=== PATIENT | female | born 1960 | race Caucasian/White ===

== ENCOUNTER 2022-03-13 17:43 | Emergency (ER) | payer MEDICARE, OTHER, MEDICAID, SELFPAY ==
[2022-03-13] VITALS (14 sets, daily range): BP systolic 111–147; BP diastolic 64–79; PULSE 57–69; RESP 11–22; TEMP 36.6; O2SAT 93–99; BMI 28.3
[2022-03-13 18:37] LABS: Add Manual Diff / Slide Review NO; Basophils Absolute Auto 0 /uL (0-100); Basophils Percent Auto 0.6 % (0-2); Eosinophils Absolute Auto 100 /uL (0-450); Eosinophils Percent Auto 1.2 % (2-4); Hematocrit 39.4 % (36-46); Hemoglobin 13.2 g/dL (12.0-16.0); Lymphocytes Absolute Auto 1500 /uL (1100-4500); Lymphocytes Percent Auto 28.1 % (25-40); Mean Corpuscular HGB Conc 33.5 % (30-36); Mean Corpuscular Hemoglobin 27.5 PG (26-34); Mean Corpuscular Volume 82.2 fL (80-100); Monocytes Absolute Auto 400 /uL (0-900); Neutrophils Absolute Auto 3200 /uL (1500-7000); Neutrophils Percent Auto 62.1 % (50-75); Platelet Count 236 X10^3/uL (150-400); Red Blood Cell Count 4.79 X10^6/uL (4.0-5.2); Red Cell Distribution Width 14.7 % (11.6-14.8); White Blood Cell Count 5.2 X10^3/uL (4.5-11.0)
[2022-03-13] MEDS: MECLIZINE HCL 12.5 MG TABLET 50 MG PO (18:51)
[2022-03-13] MEDS: SODIUM CHLORIDE 0.9% 1,000 ML 150 ML IV (18:51)
[2022-03-13] MEDS: ONDANSETRON 4 MG/2 ML INJ IV (18:52)
[2022-03-13 19:13] LABS: Alanine Aminotransferase 27 IU/L (<35); Albumin 4.5 g/dL (3.5-5.0); Albumin Globulin Ratio 1.2 (1.0-2.8); Alkaline Phosphatase 127 U/L (38-126); Aspartate Aminotransferase 32 IU/L (14-36); BUN Creatinine Ratio 9.6 (6-22); Bilirubin Total 0.4 mg/dL (0.2-1.3); Blood Urea Nitrogen 12 mg/dL (7-17); Calcium 9.9 mg/dL (8.4-10.2); Carbon Dioxide 25 mmol/L (22-32); Chloride 102 mmol/L (98-107); Creatine Kinase 45 U/L (30-135); Estimated Glomerular Filt Rate 49 mL/min (>60); Globulin 3.8 g/dL (1.7-4.1); Glucose 117 mg/dL (80-110); HEMOLYSIS < 15 (0-50); Potassium 4.3 mmol/L (3.4-5.1); Sodium 141 mmol/L (137-145); Total Protein 8.3 g/dL (6.3-8.2)
--- NOTE | 2022-03-13 19:16 | ED_ITS ---
HPI - Neuro Symptoms/Deficit <Kelsy Marivel, DO - Last Filed: 03/14/22 21:36> General Chief Complaint: Neuro Symptoms/Deficit Stated Complaint: DIZZY/NAUSEA/CAN'T HEAR OUT OF LT. EAR Time Seen by Provider: 03/13/22 18:12 Source: patient and family Mode of arrival: Wheelchair History of Present Illness HPI Narrative: Patient is a 61-year-old female with history of chronic kidney disease, schizoaffective disorder, panic disorder, GERD hyperlipidemia chronic vertigo presenting with 3 days of worsening vertigo. She says that all of her extremities feel heavy no rule localization of weakness numbness or tingling she feels extremely nauseous. Her vertigo has definitely gotten worse over the last 3 days it is worse with movement. She has no chest pain or palpitations. He has been having some visual changes more in her left side than her right side. She has some flashing lights. Started 3 days ago she had some loss of vision it seems to have returned. She saw bright red light. She denies a curtain falling down over her eyes or peripheral loss. She denies fever or chills. She generally does not feel well. Also having headache. She usually gets double vision whenever she sits up or moves. She is having obvious tremors in all extremities no On Anticoagulants: No Related Data Home Medications Medication Instructions Recorded Confirmed ASPIRIN/ACETAMINOPHEN/CAFFEINE 1 tab PO PRN ##0 03/21/11 (Excedrin Migraine Geltab) Zinc (#ZINC) 50 mg PO QDAY ##0 08/20/11 Fish Oil (#FISH OIL) 1,000 iu PO BID ##0 11/07/11 VITAMIN D (Vitamin D3) 1,000 unit PO QDAY ##0 11/07/11 ASPIRIN (#ASPIRIN) 325 mg PO PRN ##0 04/16/12 Previous Rx's Medication Instructions Recorded alprazolam 0.5 mg tablet (Xanax) 1 tab PO QDAYP #10 tabs 04/09/16 methylphenidate HCl 18 mg 18 mg PO QDAY #30 tabs 05/20/16 tablet,extended release 24 hr lamotrigine 100 mg tablet 250 mg PO HS #75 tabs 05/21/16 (Lamictal) methylphenidate HCl 54 mg 54 mg PO QDAY #30 tabs 05/21/16 tablet,extended release 24 hr zolpidem 10 mg tablet 10 mg PO HSP PRN #30 tabs 05/21/16 methylphenidate HCl 18 mg 18 mg PO QDAY #30 tabs 07/08/16 tablet,extended release 24 hr methylphenidate HCl 54 mg 54 mg PO QDAY #30 tabs 07/08/16 tablet,extended release 24 hr venlafaxine 75 mg capsule,extended 225 mg PO QDAY #270 caps 07/25/16 release 24 hr (Effexor XR) meclizine 25 mg tablet 25 mg PO QID #20 tabs 03/14/22 promethazine 25 mg rectal 25 mg WA Q6H PRN nausea and 03/14/22 suppository vomiting #12 ea Allergies Allergy/AdvReac Type Severity Reaction Status Date / Time No Known Drug Allergies Allergy Verified 03/13/22 18:08 Review of Systems <Kelsy Rowe DO - Last Filed: 03/14/22 21:36> Review of Systems Narrative: GENERAL: Denies chills, fatigue, malaise, fever, sweats, travel HEENT: Denies sinus pain, ear pain, sore throat, difficulty swallowing, neck pain RESPIRATORY: Denies dyspnea, cough, wheezing, hemoptysis, sputum. CARDIOVASCULAR: Denies chest pain, palpitations, orthopnea, edema GASTROINTESTINAL: Denies nausea, vomiting, abdominal pain, diarrhea, constipation, melena. : Denies dysuria, frequency, incontinence, hematuria, urinary retention, flank pain. MUSCULOSKELETAL: Denies weakness, joint pain, or bony pain SKIN: No rash, no erythema, no pruritus NEUROLOGIC: See HPI PSYCHIATRIC: No concerning psychosocial issues. 12 point review of systems is negative except for those stated above and HPI Hematologic/Lymphatic On Anticoagulants: No Patient History <Kelsy Rowe DO - Last Filed: 03/14/22 21:36> alcohol intake frequency: holidays/special occasions only Exam <DO Kelsy Luu Last Filed: 03/14/22 21:36> Initial Vital Signs Initial Vital Signs: Vital Signs Temperature 97.8 F 03/13/22 18:00 Pulse Rate 63 03/13/22 18:00 Respiratory Rate 18 03/13/22 18:00 Blood Pressure 135/79 03/13/22 18:00 Pulse Oximetry 98 03/13/22 18:00 Oxygen Delivery Method 03/13/22 18:00 GENERAL: Alert 61-year-old female generally appears to not feel well HEENT: Head atraumatic,EOMI, pupils reactive, face symmetric, moist mucous membranes EYES: Ultrasound at bedside does not show is any vitreous humor or retinal detachment in either eye. Red reflex present bilaterally CARDIOVASCULAR: Regular rate and rhythm without murmurs, rubs or gallops. RESPIRATORY: Breath sounds equal bilaterally, no wheezes rales or rhonchi. ABDOMEN: Soft, nontender. Normoactive bowel sounds all 4 quadrants. No guarding or rebound. EXTREMITIES: Normal range of motion, no clubbing or edema. Neurovascularly intact NEUROLOGICAL: Alert and oriented x4.Normal gait and speech. Cranial nerves II through XII grossly intact. Good [id number]-[id number], good [id number], strength equal bilaterally, no dysarthria or aphasia, sensation in tact to soft touch bilaterally, no visual changes, no facial droop. She had obvious diffuse weakness in all extremities shaking will trying to hold each extremity. SKIN: Warm, dry, no laceration, no petechiae, no rashes or lesions. <Herberth Alvraado MD - Last Filed: 03/14/22 17:30> Initial Vital Signs Initial Vital Signs: Vital Signs Temperature 97.8 F 03/13/22 18:00 Pulse Rate 63 03/13/22 18:00 Respiratory Rate 18 03/13/22 18:00 Blood Pressure 135/79 03/13/22 18:00 Pulse Oximetry 98 03/13/22 18:00 Oxygen Delivery Method 03/13/22 18:00 Scores <Kelsy Rowe DO - Last Filed: 03/14/22 21:36> NIH Stroke Scale Level of Conciousness: Alert, keenly responsive Ask month/age: Answers both questions correctly. Open/close eyes, close hand: Performs both tasks correctly Best gaze horizontal: Normal Visual gaffney: No visual loss Facial palsy: Normal symetrical movement Left arm drift: No drift for full 10 sec Right arm drift: No drift for full 10 sec Left leg drift: No drift for full 5 sec Right leg drift: No drift for full 5 sec Limb ataxia: Absent Sensory on face/arms/legs: Normal, no sensory loss Best language: No aphasia, normal Dysarthria: Normal Extinction or inattention: No abnormality Total NIH Stroke scale score: 0 <Herberth Alvarado MD - Last Filed: 03/14/22 17:30> NIH Stroke Scale Total NIH Stroke scale score: 0 Course <Kelsy Rowe DO - Last Filed: 03/14/22 21:36> Orders Ordered: Discontinued Medications Diazepam (Diazepam 10 Mg/2 Ml Syringe) 5 mg IV NOW ONE Stop: 03/14/22 07:35 Last Admin: 03/14/22 07:44 Dose: 5 mg Documented By: DUKE Diphenhydramine HCl (Diphenhydramine 50 Mg/Ml Vial) 25 mg IV NOW ONE Stop: 03/13/22 20:28 Last Admin: 03/13/22 20:36 Dose: 25 mg Documented By: MARTY Sodium Chloride (Normal Saline 0.9%) 1,000 mls @ 150 mls/hr IV CONT KAEL Last Infusion: 03/14/22 00:36 Dose: 0 mls/hr Documented By: Admin: 03/13/22 18:51 Dose: 150 mls/hr Documented By: TAY Ketorolac Tromethamine (Ketorolac 30 Mg/Ml Vial) 15 mg IV NOW ONE Stop: 03/13/22 20:28 Last Admin: 03/13/22 20:36 Dose: 15 mg Documented By: MARTY Lorazepam (Lorazepam 2 Mg/Ml Inj) 1 mg IV NOW ONE Stop: 03/13/22 22:32 Last Admin: 03/13/22 22:41 Dose: 1 mg Documented By: TAY Meclizine HCl (Meclizine Hcl 12.5 Mg Tablet) 50 mg PO NOW ONE Stop: 03/13/22 18:15 Last Admin: 03/13/22 18:51 Dose: 50 mg Documented By: NR Ondansetron HCl (Ondansetron 4 Mg/2 Ml Inj) 4 mg IV NOW ONE Stop: 03/13/22 18:15 Last Admin: 03/13/22 18:52 Dose: 4 mg Documented By: NR Vital Signs Vital signs: Vital Signs - 8 hr 03/14/22 09:30 03/14/22 10:00 03/14/22 10:00 Pulse Rate 59 L 66 Respiratory Rate 17 16 Blood Pressure 102/59 L Pulse Oximetry 93 96 03/14/22 10:30 03/14/22 11:17 Pulse Rate 54 L 55 L Respiratory Rate 18 Blood Pressure 103/60 Pulse Oximetry 93 98 <Herberth Alvarado MD - Last Filed: 03/14/22 17:30> Course Course Narrative: March 14, 2022 at 7:00 a.m. s/o dr rowe, CT angiogram reassuring. MRI is pending. Reassess for dizziness and weakness Orders Ordered: Discontinued Medications Diazepam (Diazepam 10 Mg/2 Ml Syringe) 5 mg IV NOW ONE Stop: 03/14/22 07:35 Last Admin: 03/14/22 07:44 Dose: 5 mg Documented By: DUKE Diphenhydramine HCl (Diphenhydramine 50 Mg/Ml Vial) 25 mg IV NOW ONE Stop: 03/13/22 20:28 Last Admin: 03/13/22 20:36 Dose: 25 mg Documented By: MARTY Sodium Chloride (Normal Saline 0.9%) 1,000 mls @ 150 mls/hr IV CONT KAEL Last Infusion: 03/14/22 00:36 Dose: 0 mls/hr Documented By: Admin: 03/13/22 18:51 Dose: 150 mls/hr Documented By: TAY Ketorolac Tromethamine (Ketorolac 30 Mg/Ml Vial) 15 mg IV NOW ONE Stop: 03/13/22 20:28 Last Admin: 03/13/22 20:36 Dose: 15 mg Documented By: MARTY Lorazepam (Lorazepam 2 Mg/Ml Inj) 1 mg IV NOW ONE Stop: 03/13/22 22:32 Last Admin: 03/13/22 22:41 Dose: 1 mg Documented By: TAY Meclizine HCl (Meclizine Hcl 12.5 Mg Tablet) 50 mg PO NOW ONE Stop: 03/13/22 18:15 Last Admin: 03/13/22 18:51 Dose: 50 mg Documented By: TAY Ondansetron HCl (Ondansetron 4 Mg/2 Ml Inj) 4 mg IV NOW ONE Stop: 03/13/22 18:15 Last Admin: 03/13/22 18:52 Dose: 4 mg Documented By: TAY Reevaluation(s) Reevaluation #1: March 14, 2022 at 10:11 a.m.. Spoke with patient results. She feels much better after resting overnight. Dizziness nearly resolved. She states for the past year she is had off and on dizziness and left postauricular discomfort and followed by her family doctor but nothing has been done regarding testing. MRI is suggestive may be mastoiditis. I informed her I will call otolaryngology for further instructions. Time: 10:12 Reevaluation #2: Patient denies any dizziness. Able to look at the wall without dizziness or nausea. Able to open her eyes and look around without any problems. Time: 10:23 Consultations Consultation #1: Spoke with Otolaryngology Dr. Clement Barry, at this time would not pursue mastoiditis. Patient can follow up in the office regarding her ear discomfort and dizziness ongoing for the past 1 year. Does agree with Antivert and nausea medication for home prescription Time: 10:21 Vital Signs Vital signs: Vital Signs - 8 hr 03/14/22 09:30 03/14/22 10:00 03/14/22 10:00 Pulse Rate 59 L 66 Respiratory Rate 17 16 Blood Pressure 102/59 L Pulse Oximetry 93 96 03/14/22 10:30 03/14/22 11:17 Pulse Rate 54 L 55 L Respiratory Rate 18 Blood Pressure 103/60 Pulse Oximetry 93 98 MDM - Neuro Symptoms/Deficit <Kelsy Rowe DO - Last Filed: 03/14/22 21:36> Lab Data Result diagrams: 03/13/22 18:21 03/13/22 18:21 Labs: Lab Results 03/13/22 03/13/22 03/13/22 Range/Units 18:04 18:04 18:21 WBC (4.5-11.0) X10^3/uL RBC (4.0-5.2) X10^6/uL Hgb (12.0-16.0) g/dL Hct (36-46) % MCV (80-100) fL MCH (26-34) PG MCHC (30-36) % RDW (11.6-14.8) % Plt Count (150-400) X10^3/uL Neut % (Auto) (50-75) % Lymph % (Auto) (25-40) % [place] % (Auto) (3-14) % Eos % (Auto) (2-4) % Baso % (Auto) (0-2) % Neut # (Auto) (1060-6159) /uL Lymph # (Auto) (1725-1283) /uL [place] # (Auto) (0-900) /uL Eos # (Auto) (0-450) /uL Baso # (Auto) (0-100) /uL Sodium 141 (137-145) mmol/L Potassium 4.3 (3.4-5.1) mmol/L Chloride 102 (98-107) mmol/L Carbon Dioxide 25 (22-32) mmol/L BUN 12 (7-17) mg/dL Creatinine 1.25 H (0.52-1.04) mg/dL Estimated GFR 49 L (>60) mL/min BUN/Creatinine Ratio 9.6 (6-22) Glucose 117 H (80-110) mg/dL Lactate 0.8 (0.7-2.1) mmol/L Calcium 9.9 (8.4-10.2) mg/dL Total Bilirubin 0.4 (0.2-1.3) mg/dL AST 32 (14-36) IU/L ALT 27 (<35) IU/L Alkaline Phosphatase 127 H (38-126) U/L Total Creatine Kinase 45 (30-135) U/L CK-MB (CK-2) TNP CK-MB (CK-2) Rel Index TNP Troponin I < 0.012 (0.01-0.034) ng/mL Total Protein 8.3 H (6.3-8.2) g/dL Albumin 4.5 (3.5-5.0) g/dL Globulin 3.8 (1.7-4.1) g/dL Albumin/Globulin Ratio 1.2 (1.0-2.8) Procalcitonin 0.04 (<0.5) ng/mL SARS-CoV-2 (PCR) (Negative) 03/13/22 03/13/22 Range/Units 18:21 19:43 WBC 5.2 (4.5-11.0) X10^3/uL RBC 4.79 (4.0-5.2) X10^6/uL Hgb 13.2 (12.0-16.0) g/dL Hct 39.4 (36-46) % MCV 82.2 (80-100) fL MCH 27.5 (26-34) PG MCHC 33.5 (30-36) % RDW 14.7 (11.6-14.8) % Plt Count 236 (150-400) X10^3/uL Neut % (Auto) 62.1 (50-75) % Lymph % (Auto) 28.1 (25-40) % Mcnairy % (Auto) 8.0 (3-14) % Eos % (Auto) 1.2 L (2-4) % Baso % (Auto) 0.6 (0-2) % Neut # (Auto) 3200 (7700-7396) /uL Lymph # (Auto) 1500 (9447-7049) /uL [place] # (Auto) 400 (0-900) /uL Eos # (Auto) 100 (0-450) /uL Baso # (Auto) 0 (0-100) /uL Sodium (137-145) mmol/L Potassium (3.4-5.1) mmol/L Chloride (98-107) mmol/L Carbon Dioxide (22-32) mmol/L BUN (7-17) mg/dL Creatinine (0.52-1.04) mg/dL Estimated GFR (>60) mL/min BUN/Creatinine Ratio (6-22) Glucose (80-110) mg/dL Lactate (0.7-2.1) mmol/L Calcium (8.4-10.2) mg/dL Total Bilirubin (0.2-1.3) mg/dL AST (14-36) IU/L ALT (<35) IU/L Alkaline Phosphatase (38-126) U/L Total Creatine Kinase (30-135) U/L CK-MB (CK-2) CK-MB (CK-2) Rel Index Troponin I (0.01-0.034) ng/mL Total Protein (6.3-8.2) g/dL Albumin (3.5-5.0) g/dL Globulin (1.7-4.1) g/dL Albumin/Globulin Ratio (1.0-2.8) Procalcitonin (<0.5) ng/mL SARS-CoV-2 (PCR) Negative (Negative) Point of Care Testing Test Results Positive Urine Dip Bedside Urine Glucose Negative Bedside Urine Bilirubin - Negative Bedside Urine Ketone - Negative Urine Specific [place] 1.005 Bedside Urine Occult Blood - Negative Bedside Urine pH 7.0 Bedside Urine Protein - Negative Bedside Urine Urobilinogen - Negative Bedside Urine Nitrite - Negative Bedside Urine Leukocytes - Negative Esterase Imaging Data CTA - brain/neck: Radiologist's Impression: ?Kellee Saunders MR#: [id number] : 1960 Acct:[id number] Age/Sex: 61 / F Date of Service: 03/13/22 Loc: ED Accession Number: [id number] ?? Procedure: CT angio head and neck Ordering Provider: Kelsy Rowe D.O. PROCEDURE:? CT ANGIO HEAD AND NECK ? INDICATIONS:? dizzy, falling, left eye pain ? TECHNIQUE:? Pre-contrast 4.5 mm thick sections acquired from the foramen magnum to the vertex.? After the administration of intravenous contrast, 1 mm thick sections acquired from the aortic arch through the [place].? Post-contrast 4.5 mm thick sections then re- acquired from the foramen magnum to the vertex.? 3-dimensional gsgdigl-hemlbctjg-htieoeoull (MIP) and/or volume rendering reformats were acquired of the central intracranial vasculature and neck separately. For radiation dose reduction, the following was used:? automated exposure control, adjustment of mA and/or kV according to patient size.? ? COMPARISON:? None. ? FINDINGS:? Image quality:? Excellent.? ? BRAIN:? CSF spaces:? Ventricles are normal in size and shape.? Basal cisterns are patent.? No extra-axial fluid collections.? ? Brain:? No midline shift.? No intracranial bleeds or masses.? Mix-white matter interface appears intact.? ? Skull and face:? Calvarium and facial bones appear intact, without suspicious lesions.? Orbits appear normal.? ? Sinuses:? Sinuses and mastoids are clear.? ? HEAD CT ANGIOGRAPHY:? Anterior circulation:? Intracranial internal carotid arteries are normal in size and flow.? The flow within the paired anterior cerebral arteries is normal and symmetric.? The flow within the middle cerebral arteries is normal and symmetric.? The anterior communicating artery is seen.? No aneurysms are seen.? ? Posterior circulation:? Visualized portions of the vertebral arteries demonstrate normal caliber, and join to form a normal appearing basilar artery.? Flow within the posterior cerebral arteries is normal and symmetric.? No aneurysms are seen.? ? NECK CT ANGIOGRAPHY:? Carotid system:? The great vessels demonstrate a conventional anatomy as they arise from the aortic arch.? The origins of the common carotid arteries appear patent.? The common carotid arteries demonstrate normal caliber and courses.? The bifurcation regions are both widely patent.? The internal carotid arteries demonstrate normal calibers and courses.? ? Posterior circulation:? The origins of the vertebral arteries both appear widely patent.? The more superior extracranial portions of both vertebral arteries also demonstrate normal courses and calibers.? They join to form a normal appearing basilar artery.? ? Soft tissues:? Visualized neck soft tissues demonstrate no suspicious abnormalities.? ? Bones:? No suspicious bony lesions.? Visualized cervical spine appears normally aligned.? IMPRESSION:? 1. No intracranial hemorrhage or other acute intracranial abnormality. 2. No large vessel occlusion or high-grade carotid stenosis. ? Any quantitative measurements of stenosis were performed using NASCET criteria.? ? ? Dictated by: Adonis Banks M.D. on 03/13/2022 at 19:54 ? ? Approved by: Adonis Banks M.D. on 03/13/2022 at 20:07 ? MDM Narrative Medical decision making narrative: 2229-patient re-evaluated still feeling dizzy when she turns her head. This seems to be an acute exacerbation of her ongoing vertigo. No relief with Benadryl or meclizine. CT is negative. She is given a dose of Ativan which let her sleep. She has has obvious bilateral weakness and visual changes all seems to be worse but chronic. MRI is ordered for the morning. Signed out to Dr. Alvarado <Herberth Alvarado MD - Last Filed: 03/14/22 17:30> Differential Diagnosis Differential diagnosis: Likely cerebrovascular accident, transient cerebral ischemia and other (Vertigo) Lab Data Labs: Lab Results 03/13/22 03/13/22 03/13/22 Range/Units 18:04 18:04 18:21 WBC (4.5-11.0) X10^3/uL RBC (4.0-5.2) X10^6/uL Hgb (12.0-16.0) g/dL Hct (36-46) % MCV (80-100) fL MCH (26-34) PG MCHC (30-36) % RDW (11.6-14.8) % Plt Count (150-400) X10^3/uL Neut % (Auto) (50-75) % Lymph % (Auto) (25-40) % [place]nairy % (Auto) (3-14) % Eos % (Auto) (2-4) % Baso % (Auto) (0-2) % Neut # (Auto) (6147-0125) /uL Lymph # (Auto) (1471-4852) /uL [place] # (Auto) (0-900) /uL Eos # (Auto) (0-450) /uL Baso # (Auto) (0-100) /uL Sodium 141 (137-145) mmol/L Potassium 4.3 (3.4-5.1) mmol/L Chloride 102 (98-107) mmol/L Carbon Dioxide 25 (22-32) mmol/L BUN 12 (7-17) mg/dL Creatinine 1.25 H (0.52-1.04) mg/dL Estimated GFR 49 L (>60) mL/min BUN/Creatinine Ratio 9.6 (6-22) Glucose 117 H (80-110) mg/dL Lactate 0.8 (0.7-2.1) mmol/L Calcium 9.9 (8.4-10.2) mg/dL Total Bilirubin 0.4 (0.2-1.3) mg/dL AST 32 (14-36) IU/L ALT 27 (<35) IU/L Alkaline Phosphatase 127 H (38-126) U/L Total Creatine Kinase 45 (30-135) U/L CK-MB (CK-2) TNP CK-MB (CK-2) Rel Index TNP Troponin I < 0.012 (0.01-0.034) ng/mL Total Protein 8.3 H (6.3-8.2) g/dL Albumin 4.5 (3.5-5.0) g/dL Globulin 3.8 (1.7-4.1) g/dL Albumin/Globulin Ratio 1.2 (1.0-2.8) Procalcitonin 0.04 (<0.5) ng/mL SARS-CoV-2 (PCR) (Negative) 03/13/22 03/13/22 Range/Units 18:21 19:43 WBC 5.2 (4.5-11.0) X10^3/uL RBC 4.79 (4.0-5.2) X10^6/uL Hgb 13.2 (12.0-16.0) g/dL Hct 39.4 (36-46) % MCV 82.2 (80-100) fL MCH 27.5 (26-34) PG MCHC 33.5 (30-36) % RDW 14.7 (11.6-14.8) % Plt Count 236 (150-400) X10^3/uL Neut % (Auto) 62.1 (50-75) % Lymph % (Auto) 28.1 (25-40) % [place] % (Auto) 8.0 (3-14) % Eos % (Auto) 1.2 L (2-4) % Baso % (Auto) 0.6 (0-2) % Neut # (Auto) 3200 (6032-7802) /uL Lymph # (Auto) 1500 (6538-5771) /uL [place] # (Auto) 400 (0-900) /uL Eos # (Auto) 100 (0-450) /uL Baso # (Auto) 0 (0-100) /uL Sodium (137-145) mmol/L Potassium (3.4-5.1) mmol/L Chloride (98-107) mmol/L Carbon Dioxide (22-32) mmol/L BUN (7-17) mg/dL Creatinine (0.52-1.04) mg/dL Estimated GFR (>60) mL/min BUN/Creatinine Ratio (6-22) Glucose (80-110) mg/dL Lactate (0.7-2.1) mmol/L Calcium (8.4-10.2) mg/dL Total Bilirubin (0.2-1.3) mg/dL AST (14-36) IU/L ALT (<35) IU/L Alkaline Phosphatase (38-126) U/L Total Creatine Kinase (30-135) U/L CK-MB (CK-2) CK-MB (CK-2) Rel Index Troponin I (0.01-0.034) ng/mL Total Protein (6.3-8.2) g/dL Albumin (3.5-5.0) g/dL Globulin (1.7-4.1) g/dL Albumin/Globulin Ratio (1.0-2.8) Procalcitonin (<0.5) ng/mL SARS-CoV-2 (PCR) Negative (Negative) Point of Care Testing Test Results Positive Urine Dip Bedside Urine Glucose Negative Bedside Urine Bilirubin - Negative Bedside Urine Ketone - Negative Urine Specific [place] 1.005 Bedside Urine Occult Blood - Negative Bedside Urine pH 7.0 Bedside Urine Protein - Negative Bedside Urine Urobilinogen - Negative Bedside Urine Nitrite - Negative Bedside Urine Leukocytes - Negative Esterase Imaging Data MRI brain: Radiologist's Impression: [address] [address] Magnetic Resonance Report Signed Patient: Kellee Saunders MR#: [id number] : 1960 Acct:[id number] Age/Sex: 61 / F Date of Service: 03/14/22 Loc: ED Accession Number: [id number] ?? Procedure: MR head/brain wo con Ordering Provider: Kelsy Rowe D.O. PROCEDURE:? MR HEAD/BRAIN WO CON ? INDICATIONS:? on going dizziness, visual changes ? TECHNIQUE:? Noncontrast axial T1 spin echo, axial T2 fast spin echo, sagittal and axial FLAIR, coronal T2 fast spin echo, axial gradient echo, axial diffusion and ADC through the brain.? ? COMPARISON:? [facility], CT, CT ANGIO HEAD AND NECK, 03/13/2022, 19:21. ? FINDINGS:? Image quality:? Excellent.? ? CSF Spaces:? Basal cisterns are patent.? No extra-axial fluid collections.? V entricles are normal in size and shape.? ? Brain:? No intracranial masses or hemorrhage.? Mix/white matter interface is normal.? Brainstem appears normal.? Diffusion-weighted images demonstrate no acute ischemic insult.? No chronic ischemic insults.? Normal intravascular flow voids are present.? There are minimal scattered areas increased T2/FLAIR signal intensity within the periventricular and subcortical white matter. ? Skull and face:? Calvarium has normal marrow signal.? Orbits appear normal.? ? Sinuses:? Sinuses are clear.? Fluid is present within the mastoid air cells bilaterally. ? IMPRESSION:? ? 1. No acute intracranial process. ? 2. Minimal scattered white matter hyperintensities as above most consistent with early changes of chronic microvascular ischemia. ? 3. Fluid is present within the mastoid air cells bilaterally.? Recommend correlation to potential mastoiditis.? ? ? Dictated by: Delilah Chester M.D. on 03/14/2022 at 8:22 ? ? Approved by: Delilah Chester M.D. on 03/14/2022 at 8:25 ? ECG Data Interpretation: Sinus bradycardia rate [address] elevation or depression. Incomplete right bundle-branch block MDM Narrative Medical decision making narrative: 2229-patient re-evaluated still feeling dizzy when she turns her head. This seems to be an acute exacerbation of her ongoing vertigo. No relief with Benadryl or meclizine. CT is negative. She is given a dose of Ativan which let her sleep. She has has obvious bilateral weakness and visual changes all seems to be worse but chronic. MRI is ordered for the morning. Signed out to Dr. Alvarado Appropriate for discharge home. Exam and laboratory studies and imaging are reassuring. At this time clinically likely vertigo. Medication required benzodiazepines to resolve. However not toxic at discharge. TIA/vertigo considered in diagnosis differential but not limited. Did review with Otolaryngology as well. No neuro consult indicated this time. Symptoms resol lucinda with benzodiazepines. Return precautions reviewed with patient. Not toxic at discharge. She desires discharge home. Discharge Plan Departure Patient Disposition: Home Clinical Impression: Dizziness Instructions: Vertigo Activity Restrictions/Additional Instructions: No driving or operating machinery today. Prescriptions have been provided for you tell for any recurrence of dizziness. The suppository will make you sleepy. No driving or operating machinery when taking this. This will also help for dizziness and nausea. Call provided otolaryngology/ENT office with Dr. Barry today for office appointment in a week. See family doctor in a week for recheck as well. Return if worse if any questions or concerns. Prescriptions: New meclizine 25 mg tablet 25 mg PO QID Qty: 20 0RF promethazine 25 mg suppository 25 mg WA Q6H PRN (Reason: nausea and vomiting) Qty: 12 0RF No Action ASPIRIN/ACETAMINOPHEN/CAFFEINE (Excedrin Migraine Geltab) 1 tab PO PRN Qty: 0 Zinc (#ZINC) 50 mg PO QDAY Qty: 0 Fish Oil (#FISH OIL) 1,000 iu PO BID Qty: 0 VITAMIN D (Vitamin D3) 1,000 unit PO QDAY Qty: 0 ASPIRIN (#ASPIRIN) 325 mg PO PRN Qty: 0 alprazolam [Xanax] 0.5 MG tablet 1 tab PO QDAYP Qty: 10 0RF methylphenidate HCl 18 MG tablet extended release 24hr 18 mg PO QDAY Qty: 30 0RF lamotrigine [Lamictal] 100 MG tablet 250 mg PO HS Qty: 75 1RF zolpidem 10 MG tablet 10 mg PO HSP PRNQty: 30 1RF methylphenidate HCl 54 MG tablet extended release 24hr 54 mg PO QDAY Qty: 30 0RF methylphenidate HCl 54 MG tablet extended release 24hr 54 mg PO QDAY Qty: 30 0RF methylphenidate HCl 18 MG tablet extended release 24hr 18 mg PO QDAY Qty: 30 0RF venlafaxine [Effexor XR] 75 MG capsule,extended release 24hr 225 mg PO QDAY Qty: 270 0RF Referrals: Soha Gary ARNP [Primary Care Provider] - Clement Barry MD [Physician] - Visit Report Forms: Patient Portal/API
[2022-03-13 19:24] LABS: Troponin I < 0.012 ng/mL (0.01-0.034)
--- NOTE | 2022-03-13 19:37 | DI.CT.S_ITS ---
PROCEDURE: CT ANGIO HEAD AND NECK INDICATIONS: dizzy, falling, left eye pain TECHNIQUE: Pre-contrast 4.5 mm thick sections acquired from the foramen magnum to the vertex. After the administration of intravenous contrast, 1 mm thick sections acquired from the aortic arch through the [place] of [place]. Post-contrast 4.5 mm thick sections then re-acquired from the foramen magnum to the vertex. 3-dimensional [id number]-tbjtcplqmm (MIP) and/or volume rendering reformats were acquired of the central intracranial vasculature and neck separately. For radiation dose reduction, the following was used: automated exposure control, adjustment of mA and/or kV according to patient size. COMPARISON: None. FINDINGS: Image quality: Excellent. BRAIN: CSF spaces: Ventricles are normal in size and shape. Basal cisterns are patent. No extra-axial fluid collections. Brain: No midline shift. No intracranial bleeds or masses. Mix-white matter interface appears intact. Skull and face: Calvarium and facial bones appear intact, without suspicious lesions. Orbits appear normal. Sinuses: Sinuses and mastoids are clear. HEAD CT ANGIOGRAPHY: Anterior circulation: Intracranial internal carotid arteries are normal in size and flow. The flow within the paired anterior cerebral arteries is normal and symmetric. The flow within the middle cerebral arteries is normal and symmetric. The anterior communicating artery is seen. No aneurysms are seen. Posterior circulation: Visualized portions of the vertebral arteries demonstrate normal caliber, and join to form a normal appearing basilar artery. Flow within the posterior cerebral arteries is normal and symmetric. No aneurysms are seen. NECK CT ANGIOGRAPHY: Carotid system: The great vessels demonstrate a conventional anatomy as they arise from the aortic arch. The origins of the common carotid arteries appear patent. The common carotid arteries demonstrate normal caliber and courses. The bifurcation regions are both widely patent. The internal carotid arteries demonstrate normal calibers and courses. Posterior circulation: The origins of the vertebral arteries both appear widely patent. The more superior extracranial portions of both vertebral arteries also demonstrate normal courses and calibers. They join to form a normal appearing basilar artery. Soft tissues: Visualized neck soft tissues demonstrate no suspicious abnormalities. Bones: No suspicious bony lesions. Visualized cervical spine appears normally aligned. IMPRESSION: 1. No intracranial hemorrhage or other acute intracranial abnormality. 2. No large vessel occlusion or high-grade carotid stenosis. Any quantitative measurements of stenosis were performed using NASCET criteria. Dictated by: Adonis Banks M.D. on 03/13/2022 at 19:54 Approved by: Adonis Banks M.D. on 03/13/2022 at 20:07
[2022-03-13 20:09] LABS: COVID19 -Nasal RAPID Negative (Negative)
[2022-03-13 20:27] LABS: Lactate (Lactic Acid) 0.8 mmol/L (0.7-2.1)
[2022-03-13] MEDS: KETOROLAC 30 MG/ML VIAL 15 MG IV (20:36)
[2022-03-13] MEDS: diphenhydrAMINE 50 MG/ML VIAL 25 MG IV (20:36)
[2022-03-13 20:45] LABS: Procalcitonin 0.04 ng/mL (<0.5)
[2022-03-13] MEDS: LORazepam 2 MG/ML INJ 1 MG IV (22:41)
[2022-03-14] VITALS (30 sets, daily range): BP systolic 88–110; BP diastolic 51–71; PULSE 48–74; RESP 7–42; O2SAT 90–98
--- NOTE | 2022-03-14 02:35 | DI.MRI.S_ITS ---
PROCEDURE: MR HEAD/BRAIN WO CON INDICATIONS: on going dizziness, visual changes TECHNIQUE: Noncontrast axial T1 spin echo, axial T2 fast spin echo, sagittal and axial FLAIR, coronal T2 fast spin echo, axial gradient echo, axial diffusion and ADC through the brain. COMPARISON: [facility], CT, CT ANGIO HEAD AND NECK, 03/13/2022, 19:21. FINDINGS: Image quality: Excellent. CSF Spaces: Basal cisterns are patent. No extra-axial fluid collections. Ventricles are normal in size and shape. Brain: No intracranial masses or hemorrhage. Mix/white matter interface is normal. Brainstem appears normal. Diffusion-weighted images demonstrate no acute ischemic insult. No chronic ischemic insults. Normal intravascular flow voids are present. There are minimal scattered areas increased T2/FLAIR signal intensity within the periventricular and subcortical white matter. Skull and face: Calvarium has normal marrow signal. Orbits appear normal. Sinuses: Sinuses are clear. Fluid is present within the mastoid air cells bilaterally. IMPRESSION: 1. No acute intracranial process. 2. Minimal scattered white matter hyperintensities as above most consistent with early changes of chronic microvascular ischemia. 3. Fluid is present within the mastoid air cells bilaterally. Recommend correlation to potential mastoiditis. Dictated by: Delilah Chester M.D. on 03/14/2022 at 8:22 Approved by: Delilah Chester M.D. on 03/14/2022 at 8:25
[2022-03-14] MEDS: diazePAM 10 MG/2 ML SYRINGE 5 MG IV (07:44)
--- NOTE | 2022-03-14 09:27 | PC.NURSE ---
pt reports felt some vertigo/dizziness when up to wheelchair for mri but less than last night.
--- NOTE | 2022-03-14 10:38 | PC.NURSE ---
message left with to come pick patient up [phone]
--- NOTE | 2022-03-14 14:06 | PC.NURSE ---
[facility] called requesting change in medication for patient from suppositories to pill, per Dr Alvarado was okay to change with same Q6H PRN.
== END 2022-03-14 11:20 | disposition home or self-care (01) ==
PROVIDERS: Emergency Medicine; Emergency Provider Emergency Medicine; PCP Nurse Practitioner
DX: R42 Dizziness and giddiness (principal); H53.9 Unspecified visual disturbance; R51.9 Headache, unspecified; Z20.822 Contact with and (suspected) exposure to COVID-19
CPT/HCPCS: 36415; 70496; 70498; 70551; 80053; 81003; 81025; 82550; 83605; 84145; 84484; 85025; 87635; 93005; 93010; 96361; 96374; 96375; 99284; C9803; J1200; J1885; J2060; J2405; J3360; Q9967

== ENCOUNTER 2023-06-30 19:54 | Emergency (ER) | payer MEDICARE, MEDICAID, SELFPAY ==
[2023-06-30 20:02] VITALS: BP 122/59; PULSE 85; RESP 18; TEMP 36.8; O2SAT 97; BMI 28.8
--- NOTE | 2023-06-30 20:09 | DI.RAD.S_ITS ---
PROCEDURE: XR RIBS RT MIN 3V W CXR 1V INDICATIONS: fall thursday/pain TECHNIQUE: 4 views of the ribs were acquired, along with a single view chest. COMPARISON: None. FINDINGS: Surgical changes and devices: None. Bones and chest wall: Motion degraded radiographs. No displaced fracture is seen. Degenerative changes. Lungs and pleura: Linear opacities in the right lung may represent atelectasis/scar. No dense consolidation or pleural effusion. Mediastinum: Normal heart size IMPRESSION: No acute radiographic abnormality. There is motion artifact. If there is high concern for occult injury, consider repeat radiography or cross-sectional imaging. Linear opacities in the right lung, possibly atelectasis or scar. Consider future imaging surveillance to assess for resolution. Dictated by: Chalino Ca M.D. on 06/30/2023 at 20:57 Approved by: Chalino Ca M.D. on 06/30/2023 at 20:59
--- NOTE | 2023-06-30 21:10 | ED.BACK ---
HPI - Back Pain/Injury General Chief Complaint: Back Pain/Injury Stated Complaint: rt sided rib pain s/p fall on thursday Time Seen by Provider: 06/30/23 20:46 Source: patient Mode of arrival: Ambulatory History of Present Illness HPI Narrative: 62-year-old female who stated that she fell approximately 4 days ago. Landed on her right side. Since that time she has had right-sided back lower rib and side lower rib discomfort. It hurts with palpation. Hurts with movement. Hurts with coughing and hurts with taking deep breaths. No fevers. No shortness of breath. No bruising. No other injuries from the event. Related Data Home Medications Medication Instructions Recorded Confirmed ASPIRIN/ACETAMINOPHEN/CAFFEINE 1 tab PO PRN ##0 03/21/11 (Excedrin Migraine Geltab) Zinc (#ZINC) 50 mg PO QDAY ##0 08/20/11 Fish Oil (#FISH OIL) 1,000 iu PO BID ##0 11/07/11 VITAMIN D (Vitamin D3) 1,000 unit PO QDAY ##0 11/07/11 ASPIRIN (#ASPIRIN) 325 mg PO PRN ##0 04/16/12 Previous Rx's Medication Instructions Recorded alprazolam 0.5 mg tablet (Xanax) 1 tab PO QDAYP #10 tabs 04/09/16 methylphenidate HCl 18 mg 18 mg PO QDAY #30 tabs 05/20/16 tablet,extended release 24 hr lamotrigine 100 mg tablet 250 mg (2.5 x 100 mg) PO HS #75 05/21/16 (Lamictal) tabs methylphenidate HCl 54 mg 54 mg PO QDAY #30 tabs 05/21/16 tablet,extended release 24 hr zolpidem 10 mg tablet 10 mg PO HSP PRN #30 tabs 05/21/16 methylphenidate HCl 18 mg 18 mg PO QDAY #30 tabs 07/08/16 tablet,extended release 24 hr methylphenidate HCl 54 mg 54 mg PO QDAY #30 tabs 07/08/16 tablet,extended release 24 hr venlafaxine 75 mg capsule,extended 225 mg (3 x 75 mg) PO QDAY #270 07/25/16 release 24 hr (Effexor XR) caps meclizine 25 mg tablet 25 mg PO QID #20 tabs 03/14/22 promethazine 25 mg rectal 25 mg MO Q6H PRN nausea and 03/14/22 suppository vomiting #12 ea Allergies Allergy/AdvReac Type Severity Reaction Status Date / Time No Known Drug Allergies Allergy Verified 03/13/22 18:08 Review of Systems Constitutional Constitutional: Reports system reviewed and no additional complaints, except as documented Cardiovascular Cardiovascular: Reports system reviewed and no additional complaints, except as documented Respiratory Respiratory: Reports system reviewed and no additional complaints, except as documented Gastrointestinal Gastrointestinal: Reports system reviewed and no additional complaints, except as documented Integumentary/Breasts Skin/Breast: Reports system reviewed and no additional complaints, except as documented Neurologic Neurologic: Reports system reviewed and no additional complaints, except as documented Hematologic/Lymphatic On Anticoagulants: No Patient History Social History Smoking Status: Never smoker Smoking Status: Never smoker alcohol intake frequency: holidays/special occasions only Substance Use Type: does not use Exam Initial Vital Signs Initial Vital Signs: Vital Signs Temperature 98.3 F 06/30/23 20:02 Pulse Rate 85 06/30/23 20:02 Respiratory Rate 18 06/30/23 20:02 Blood Pressure 122/59 L 06/30/23 20:02 Pulse Oximetry 97 06/30/23 20:02 Oxygen Delivery Method Room Air 06/30/23 20:02 Const General: cooperative and No ill appearing HENMT Head: normal to inspection Chest Chest: No crepitus and tenderness (Right-sided lower ribs lateral flank and posterior) Resp Effort & Inspection: normal respiratory effort Auscultation: clear to auscultation bilaterally Skin General: no rashes or lesions noted Neuro General: patient alert, patient awake and moves all extremities Extrem General: capillary refill normal Course Orders Ordered: ED Orders 06/30/23 20:09 XR ribs RT min 3V w CXR1V Stat Vital Signs Vital signs: Vital Signs - 8 hr 06/30/23 20:02 06/30/23 21:20 Temperature 98.3 F Pulse Rate 85 97 H Respiratory Rate 18 16 Blood Pressure 122/59 L 102/69 Pulse Oximetry 97 98 Oxygen Delivery Method Room Air Room Air MDM - Back Pain/Injury Imaging Data Chest x-ray: Radiologist's Impression: PROCEDURE: XR RIBS RT MIN 3V W CXR 1V INDICATIONS: fall isreal/pain TECHNIQUE: 4 views of the ribs were acquired, along with a single view chest. COMPARISON: None. FINDINGS: Surgical changes and devices: None. Bones and chest wall: Motion degraded radiographs. No displaced fracture is seen. Degenerative changes. Lungs and pleura: Linear opacities in the right lung may represent atelectasis/scar. No dense consolidation or pleural effusion. Mediastinum: Normal heart size IMPRESSION: No acute radiographic abnormality. There is motion artifact. If there is high concern for occult injury, consider repeat radiography or cross-sectional imaging. Linear opacities in the right lung, possibly atelectasis or scar. Consider future imaging surveillance to assess for resolution. MDM Narrative Medical decision making narrative: No fevers. Lungs are clear. Not hypoxic. No bruising. No abdominal tenderness. X-ray shows no displaced rib fractures although I discussed with the patient the possibility of a nondisplaced fracture. No indication for admission to the hospital. No shortness of breath. Will discharge patient home with strict return precautions. She expressed understanding and agreement with plan. Discharge Plan Departure Patient Disposition: Home Clinical Impression: Rib pain on right side Instructions: DI for Rib Contusion Activity Restrictions/Additional Instructions: There were no fractures noted on the x-rays. You do need to make sure that you are occasionally taking deep breaths like we discussed. I would expect some improvement in the next several days. Return to the emergency department for new symptoms. Prescriptions: No Action ASPIRIN/ACETAMINOPHEN/CAFFEINE (Excedrin Migraine Geltab) 1 tab PO PRN Qty: 0 Zinc (#ZINC) 50 mg PO QDAY Qty: 0 Fish Oil (#FISH OIL) 1,000 iu PO BID Qty: 0 VITAMIN D (Vitamin D3) 1,000 unit PO QDAY Qty: 0 ASPIRIN (#ASPIRIN) 325 mg PO PRN Qty: 0 alprazolam [Xanax] 0.5 MG tablet 1 tab PO QDAYP Qty: 10 0RF methylphenidate HCl 18 MG tablet extended release 24hr 18 mg PO QDAY Qty: 30 0RF lamotrigine [Lamictal] 100 MG tablet 250 mg PO HS Qty: 75 1RF zolpidem 10 MG tablet 10 mg PO HSP PRNQty: 30 1RF methylphenidate HCl 54 MG tablet extended release 24hr 54 mg PO QDAY Qty: 30 0RF methylphenidate HCl 54 MG tablet extended release 24hr 54 mg PO QDAY Qty: 30 0RF methylphenidate HCl 18 MG tablet extended release 24hr 18 mg PO QDAY Qty: 30 0RF venlafaxine [Effexor XR] 75 MG capsule,extended release 24hr 225 mg PO QDAY Qty: 270 0RF meclizine 25 mg tablet 25 mg PO QID Qty: 20 0RF promethazine 25 mg suppository 25 mg MO Q6H PRN (Reason: nausea and vomiting) Qty: 12 0RF Referrals: Soha Gary ARNP [Primary Care Provider] - Stand Alone Forms: Patient Portal/API
[2023-06-30 21:20] VITALS: BP 102/69; PULSE 97; RESP 16; O2SAT 98
== END 2023-06-30 21:21 | disposition home or self-care (01) ==
PROVIDERS: Emergency Provider Emergency Medicine; PCP Nurse Practitioner
DX: R07.81 Pleurodynia (principal); W18.30XA Fall on same level, unspecified, initial encounter
CPT/HCPCS: 71101; 99281; 99283

== ENCOUNTER 2023-11-09 08:29 | Day surgery (SDC) | payer MEDICARE, SELFPAY ==
--- NOTE | 2023-11-09 | PATH_ITS ---
[facility] Accession Number: [id number] No. of containers..04 Tissue . 01 Material submitted: . PART A: stomach - GASTRIC ANTRUM PART B: gastrointestinal site - GASTRIC POLYPS PART C: esophagus, E-G Junction - GE JUNCTION BX PART D: esophagus - MID ESOPHAGUS BIOPSY . 01 Diagnosis: Part A: GASTRIC ANTRUM: Gastric mucosa with minimal chronic inflammation. No Helicobacter organisms identified on H/E stain. No intestinal metaplasia, dysplasia, or malignancy identified. . Part B: GASTRIC POLYPS: Fundic gland polyps. No Helicobacter organisms identified on H/E stain. No intestinal metaplasia, dysplasia, or malignancy identified. . Part C: GE JUNCTION BX: Gastroesophageal junction mucosa with mild changes consistent with reflux. No goblet cell metaplasia or dysplasia identified. . Part D: MID ESOPHAGUS BIOPSY: Squamous mucosa with focal mild active inflammation. No infectious organisms identified. Eosinophils are not increased. . Specimen Comments: The histologic features raise a differential including reflux or infectious etiologies, among other possibilities. No infectious organisms are seen in the biopsy sections, and reflux is considered likely. Clinical correlation is recommended. [facility] 11/17/2023 1213 Local . 01 Electronically signed: . Lon Reynaga MD, Pathologist NPI- [id number] . 01 Gross description: . Part A: GASTRIC ANTRUM: Received in formalin is 1 fragment(s) of desai, soft tissue measuring 0.2 x 0.2 x 0.1 cm submitted entirely in 1 cassette(s) . Part B: GASTRIC POLYPS: Received in formalin are 2 fragment(s) of desai, soft tissue measuring 0.1 x 0.1 x 0.1 cm to 0.2 x 0.2 x 0.2 cm submitted entirely in 1 cassette(s) . Part C: GE JUNCTION BX: Received in formalin are 2 fragment(s) of desai, soft tissue measuring 0.1 x 0.1 x 0.1 cm to 0.2 x 0.2 x 0.2 cm submitted entirely in 1 cassette(s) . Part D: MID ESOPHAGUS BIOPSY: Received in formalin are 2 fragment(s) of desai, soft tissue measuring 0.2 x 0.1 x 0.1 cm to 0.3 x 0.1 x 0.1 cm submitted entirely in 1 cassette(s) /[facility]YA 11/17/2023 1213 Local . 01 Microscopic: . Part D: MID ESOPHAGUS BIOPSY: An ABPAS stain was performed to evaluate for fungal organisms, and is negative. The control stains appropriately. . 01 Pathologist provided ICD-10: K20.9, K21.00, K29.30, K31.7 . 01 CPT . 559117, 905971, 083163, [id number], 900314 Specimen Comment: A courtesy copy of this report has been sent to [phone] Performed at: [address] [address], [place], [place] [id number] MD Lon Reynaga MD Phone: [phone]
[2023-11-09] MEDS: LACTATED RINGERS 1,000 ML 42 ML IV (09:14)
[2023-11-09 09:21] VITALS: BP 136/78; PULSE 87; RESP 16; TEMP 36.2; O2SAT 97
--- NOTE | 2023-11-09 09:33 | PM.HP.1 ---
History of Present Illness History of Present Illness Date Patient Seen: 11/09/23 Time Patient Seen: 09:34 Chief complaint: EGD & Screening Colonoscopy Narrative: 62-year-old female with refractory heartburn symptoms and dysphagia. She reports that she has not better with optimal administration of b.i.d. PPI. She also presents for colon cancer screening. Otherwise I reviewed my office note from early September and no other changes. [facility] Social History Smoking Status: Never smoker Meds Home Medications and Allergies Home Medications Medication Instructions Recorded Confirmed Type ASPIRIN/ACETAMINOPHEN/CAFFEINE 1 tab PO PRN ##0 03/21/11 History (Excedrin Migraine Geltab) Zinc (#ZINC) 50 mg PO QDAY ##0 08/20/11 History Fish Oil (#FISH OIL) 1,000 iu PO BID ##0 11/07/11 History VITAMIN D (Vitamin D3) 1,000 unit PO QDAY ##0 11/07/11 History ASPIRIN (#ASPIRIN) 325 mg PO PRN ##0 04/16/12 11/09/23 History alprazolam 0.5 mg tablet (Xanax) 1 tab PO QDAYP #10 tabs 04/09/16 11/09/23 Rx lamotrigine 100 mg tablet 250 mg (2.5 x 100 mg) PO HS #75 05/21/16 11/09/23 Rx (Lamictal) tabs methylphenidate HCl 54 mg 54 mg PO QDAY #30 tabs 05/21/16 11/09/23 Rx tablet,extended release 24 hr methylphenidate HCl 18 mg 18 mg PO QDAY #30 tabs 07/08/16 11/09/23 Rx tablet,extended release 24 hr venlafaxine 75 mg capsule,extended 225 mg (3 x 75 mg) PO QDAY #270 07/25/16 11/09/23 Rx release 24 hr (Effexor XR) caps meclizine 25 mg tablet 25 mg PO QID PRN Vertigo 11/09/23 11/09/23 History Allergies Allergy/AdvReac Type Severity Reaction Status Date / Time No Known Drug Allergies Allergy Verified 11/09/23 09:14 Review of Systems Review of Systems ROS: Yes All systems reviewed with the patient and are negative except as otherwise documented Exam Const General: cooperative HENMT Head: normal to inspection Eyes General: appearance normal, both eyes and all related structures Neck Neck: normal visual inspection Chest Chest: normal inspection of the chest Resp Effort & Inspection: normal respiratory effort Cardio Rate: regular rate GI Inspection: normal to inspection Skin General: no rashes or lesions noted Neuro General: patient alert and patient awake Extrem General: normal to inspection and no pedal edema Psych Appearance: grossly normal Assessment & Plan Assessment & Plan narrative: This is a 62-year-old female with refractory heartburn and dysphagia here for endoscopic evaluation along with colon cancer screening. EGD and colonoscopy are pursued today.
--- NOTE | 2023-11-09 09:36 | PM.PREOP ---
Pre-operative Note Interval Note History & Physical reviewed/Exam performed by Physician: Yes Changes to H&P: No ASA Class (for procedural sedation): II
--- NOTE | 2023-11-09 11:00 | PM.OP.EC ---
Operative Date/Time/Diagnoses Date of procedure: 11/09/23 Time of procedure: 11:00 Pre-op diagnosis: Refractory GERD, dysphagia, here for colon cancer screening Post-op diagnosis: same Procedure & Clinicians Study performed: EGD with biopsies and a colonoscopy Same procedure as scheduled: Yes Indications: Refractory GERD, dysphagia, here for colon cancer screening Surgeon: Freddy Jiménez Procedure Notes SCOAP/Timeout: Done Procedure in detail: After the risks and benefits were explained, written and verbal informed consent was obtained. The patient was brought into the procedure room and placed into the left lateral decubitus position. Please see anesthesia notes for sedation details. The scope was introduced into the mouth through the bite block and advanced under direct visualization to the 2nd portion of the duodenum. The scope was slowly withdrawn carefully examining the mucosa for any defects or lesions. Retroflexed views were accomplished in the stomach. The stomach was decompressed, the scope was then removed from the patient who tolerated the procedure well. The patient was then turned around. A digital rectal examination was accomplished. The scope was introduced into the rectum and advanced to the cecum as identified by the appendiceal orifice and ileocecal valve. The scope was slowly withdrawn to carefully examine mucosa for any defects or lesions. Multiple direct views were made through the dentate line for exclusion of pathology. The colon was decompressed. The scope was removed from the patient who tolerated the procedure well. Pediatric colonoscope Bowel prep adequate Scope withdrawal time: 10 minutes Sedation minutes: 35 Complications: none Impression: 1. Duodenal: This was normal from the bulb through to the 2nd portion. 2. Stomach: No ulcers, no mass lesions, and no outlet obstruction. Minimal gastropathy was appreciated and biopsy was acquired from the antrum for exclusion of H pylori. There were several small benign-appearing polyps in the proximal gastric body. A couple of these were sampled for histopathologic analysis. Retroflexed views otherwise revealed the presence of a Hill grade 4 hiatal hernia 3. Esophagus: The squamocolumnar junction correlated with the top of the gastric folds. GEJ was at approximately 38 cm from the incisors. The patient had evidence of at least LA grade B erosive esophagitis. No strictures were identified. No mass lesions. Biopsy was taken from the GE junction. A separate set of biopsies was taken from the midesophagus to exclude eosinophilic esophagitis. There were subtle tightly group circumferential rings intermittently seen. 4. Colon: No significant polyps mass lesions or inflammatory features identified throughout. Endoscopic diagnosis 1. Hiatal hernia 2. LA grade B erosive esophagitis 3. Mild gastropathy 4. Gastric polyps 5. Visually unremarkable colonoscopy Post-procedure Plan for aftercare: 1. Await histology. 2. Continue twice daily pantoprazole. This needs to be taken 30-60 minutes before the 1st meal of the day and 30-60 minutes before the last meal of the day on a relatively empty stomach. 3. Follow up in primary care to discuss polypharmacy. 4. Follow up GI clinic in the next 6-8 weeks. 5. Repeat colonoscopy for screening 10 years. Disposition: PACU
[2023-11-09 11:02] VITALS: BP 111/61; PULSE 69; RESP 10; TEMP 36.2; O2SAT 96
[2023-11-09 11:07] VITALS: BP 96/69; PULSE 77; RESP 17; O2SAT 97
[2023-11-09 11:12] VITALS: BP 112/75; PULSE 66; RESP 12; O2SAT 99
[2023-11-09 11:17] VITALS: BP 119/80; PULSE 63; RESP 12; O2SAT 99
[2023-11-09 11:30] VITALS: BP 123/74; PULSE 62; RESP 13; O2SAT 99
== END 2023-11-09 11:43 | disposition home or self-care (01) ==
PROVIDERS: PCP Family Medicine; Referring Provider Internal Medicine Gastroenterology; Visit Provider Internal Medicine Gastroenterology
PROC: 0DJ08ZZ Inspection of Upper Intestinal Tract, Via Natural or Artificial Opening Endoscopic (ICD-10-PCS; CPT 43239; principal; 2023-11-09 09:30)
PROC: 0DJD8ZZ Inspection of Lower Intestinal Tract, Via Natural or Artificial Opening Endoscopic (ICD-10-PCS; CPT 45378; 2023-11-09 09:30)
DX: Z12.11 Encounter for screening for malignant neoplasm of colon (principal); R13.10 Dysphagia, unspecified; K44.9 Diaphragmatic hernia without obstruction or gangrene; K31.9 Disease of stomach and duodenum, unspecified; K31.7 Polyp of stomach and duodenum; K29.50 Unspecified chronic gastritis without bleeding; K21.00 Gastro-esophageal reflux disease with esophagitis, without bleeding
CPT/HCPCS: 43239 ×2; G0121; J2704

== ENCOUNTER → 2024-05-03 13:28 | Outpatient (CLI) | payer MEDICARE, SELFPAY ==
--- NOTE | 2024-05-03 | DI.US.S_ITS ---
PROCEDURE: US CAROTID DOPPLER BI INDICATIONS: VERTIGO, MIXED HYPERLIPIDEMIA TECHNIQUE: Color and pulse Doppler interrogation was performed of both carotid systems, with image documentation and velocity measurements. COMPARISON: [facility], CT, CT ANGIO HEAD AND NECK, 03/13/2022, 19:21. FINDINGS: Stenosis calculations are based on SRU (Society of Radiologists in Ultrasound) criteria. The flow velocities and the arterial waveforms are normal within both carotid arterial systems. Mild atherosclerotic plaque is seen on both sides. The estimated degree of internal carotid artery stenosis is less than 50%. Antegrade flow is confirmed within both vertebral arteries. IMPRESSION: No hemodynamically significant stenosis is seen. Dictated by: Tej Harding M.D. on 05/03/2024 at 14:29 Approved by: Tej Harding M.D. on 05/03/2024 at 14:29
== END ==
PROVIDERS: PCP Family Medicine; Referring Provider Family Medicine; Visit Provider Family Medicine
DX: R42 Dizziness and giddiness (principal); E78.2 Mixed hyperlipidemia
CPT/HCPCS: 93880

== ENCOUNTER → 2024-12-19 07:19 | Outpatient (CLI) | payer MEDICARE, SELFPAY ==
--- NOTE | 2024-12-19 07:20 | DI.MG.S_ITS ---
MM screening mammo BI: 12/19/2024. BI-RADS: 1 CLINICAL: 64-year old female for bilateral screening mammogram. Tyrer-Cuzick lifetime risk of 11.6%. Current reported family history of breast cancer: mother. PRIOR EXAMS 05/25/2015, 05/03/2015. MAMMOGRAPHY TECHNIQUE: 2D and 3D (tomosynthesis) digital mammographic views obtained, with additional images as needed for full coverage. Current study was also evaluated with a Computer Aided Detection (CAD) system. DENSITY C. The breasts are heterogeneously dense, which may obscure small masses. MAMMOGRAPHY FINDINGS Bilateral: No suspicious mass, asymmetry, microcalcification, or other abnormality seen. IMPRESSION: * No evidence of malignancy. RECOMMENDATIONS Bilateral * Annual screening mammography. OVERALL ASSESSMENT CATEGORY BI-RADS-1: Negative. The [employer] recommends annual screening mammography beginning at age 40 for women with average risk of breast cancer. ELECTRONICALLY SIGNED: Silvestre Browning M.D. on 12/19/2024 at 01:51:27 PM PT Interpreting Station ID: [id number]
== END ==
PROVIDERS: PCP Family Medicine; Referring Provider Family Medicine; Visit Provider Family Medicine
DX: Z12.31 Encounter for screening mammogram for malignant neoplasm of breast (principal); R92.333 Mammographic heterogeneous density, bilateral breasts; Z80.3 Family history of malignant neoplasm of breast
CPT/HCPCS: 77063; 77067